=== PATIENT | male | born 1990 | race American Indian/Alaskan Native ===

== ENCOUNTER 2019-03-20 12:08 | Emergency (ER) | payer SELFPAY ==
[2019-03-20 12:20] VITALS: BP 141/79
--- NOTE | 2019-03-20 12:23 | Emergency Department Report ---
- General Chief Complaint: Sore Throat Stated Complaint: SORE THROAT/COUGHING/BACK PAIN Time Seen by Provider: 03/20/19 12:18 Source: patient Mode of arrival: Ambulatory Limitations: No Limitations - History of Present Illness Initial Comments: pt is a 28 yo male who presents to the ED with c/o ithcy/dry sore throat that began three days. he has associated dry cough, congestion, rhinorrhea. he denies any fever, no ear pain, no productive cough. pt does not report cp or SOB. denies tobacco use. no allergies to meds. - Related Data Previous Rx's Medication Instructions Recorded Last Taken Type Cetirizine HCl [Zyrtec 10mg tab] 10 mg PO DAILY #14 tablet 03/20/19 Unknown Rx Fluticasone [Flonase] 1 spray NS QDAY #1 bottle 03/20/19 Unknown Rx guaiFENesin/DEXTROMETHORPHAN 10 ml PO Q4HR PRN #1 bottle 03/20/19 Unknown Rx [Robitussin Cough-Chest Dm Liq] Allergies Allergy/AdvReac Type Severity Reaction Status Date / Time No Known Allergies Allergy Unverified 03/20/19 12:10 ED Review of Systems ROS: Stated complaint: SORE THROAT/COUGHING/BACK PAIN Other details as noted in HPI Comment: All other systems reviewed and negative ED Past Medical Hx - Past Medical History Previous Medical History?: No - Surgical History Past Surgical History?: No - Social History Smoking Status: Never Smoker Substance Use Type: Marijuana - Medications Home Medications: Home Medications Medication Instructions Recorded Confirmed Last Taken Type Cetirizine HCl [Zyrtec 10mg tab] 10 mg PO DAILY #14 tablet 03/20/19 Unknown Rx Fluticasone [Flonase] 1 spray NS QDAY #1 bottle 03/20/19 Unknown Rx guaiFENesin/DEXTROMETHORPHAN 10 ml PO Q4HR PRN #1 bottle 03/20/19 Unknown Rx [Robitussin Cough-Chest Dm Liq] ED Physical Exam - General Limitations: No Limitations General appearance: alert, in no apparent distress - Head Head exam: Present: atraumatic, normocephalic - Eye Eye exam: Present: normal appearance, PERRL, EOMI. Absent: periorbital swelling, periorbital tenderness - ENT ENT exam: Present: normal orophraynx, mucous membranes moist, TM's normal bilaterally, normal external ear exam, other (mucus drainage present in bilateral nares, no sinus TTP bilaterally) - Respiratory Respiratory exam: Present: normal lung sounds bilaterally. Absent: respiratory distress, wheezes, rales, rhonchi, stridor, chest wall tenderness, accessory muscle use, decreased breath sounds, prolonged expiratory - Cardiovascular Cardiovascular Exam: Present: regular rate, normal rhythm, normal heart sounds. Absent: systolic murmur, diastolic murmur, rubs, gallop - Neurological Exam Neurological exam: Present: alert, oriented X3 - Psychiatric Psychiatric exam: Present: normal affect, normal mood - Skin Skin exam: Present: warm, dry, intact ED Course Vital Signs 03/20/19 12:19 Temperature 99.3 F Pulse Rate 78 Respiratory 18 Rate Blood Pressure 141/79 O2 Sat by Pulse 96 Oximetry ED Medical Decision Making - Medical Decision Making pt is a 28 yo male who presents to the ED with c/o ithcy/dry sore throat that began three days. he has associated dry cough, congestion, rhinorrhea. he denies any fever, no ear pain, no productive cough. pt does not report cp or SOB. denies tobacco use. no allergies to meds. VSS. no tachycardia, pt is afebrile. on exam: mucus drainage present in bilateral nares, no sinus TTP bilaterally, breath sounds are clear bilaterally, no w/r/r, normal oropharynx, normal TMs and canals. given prescription for flonase, zyrtec, and robitussin. it is very important you increase your fluid intake over the next several days. take medication as prescribed. may take tylenol or ibuprofen for any discomfort. do warm salt water gargles, eat warm soup, drink warm tea. follow up with your primary care doctor in the next 2-3 days. return to the emergency room for any new or worsening symptoms. Critical care attestation.: If time is entered above; I have spent that time in minutes in the direct care of this critically ill patient, excluding procedure time. ED Disposition Clinical Impression: Upper respiratory infection Qualifiers: URI type: unspecified URI Qualified Code(s): J06.9 - Acute upper respiratory infection, unspecified Disposition: TO HOME OR SELFCARE Is pt being admited?: No Does the pt Need Aspirin: No Condition: Stable Instructions: Upper Respiratory Infection (ED) Additional Instructions: it is very important you increase your fluid intake over the next several days. take medication as prescribed. may take tylenol or ibuprofen for any discomfort. do warm salt water gargles, eat warm soup, drink warm tea. follow up with your primary care doctor in the next 2-3 days. return to the emergency room for any new or worsening symptoms. Prescriptions: Fluticasone [Flonase] 1 spray NS QDAY #1 bottle guaiFENesin/DEXTROMETHORPHAN [Robitussin Cough-Chest Dm Liq] 10 ml PO Q4HR PRN #1 bottle PRN Reason: cough Cetirizine HCl [Zyrtec 10mg tab] 10 mg PO DAILY #14 tablet Referrals: [facility] [Provider Group] - 2-3 Days Time of Disposition: 12:28 Print Language: AMERICAN
--- NOTE | 2019-03-20 12:23 | Event Note ---
ED Screening Note ED Screening Note: pt presents to the ED with c/o ithcy/dry sore throat three days +dry cough +congestion +rhinorrhea no fever denies tobacco use no allergies to meds will d/c from triage
== END 2019-03-20 13:30 | disposition home or self-care (01) ==
LOC: ED 12:08
DX: J06.9 Acute upper respiratory infection, unspecified (principal); F12.10 Cannabis abuse, uncomplicated